=== PATIENT | female | born 1970 | race Caucasian/White ===

== ENCOUNTER 2022-02-23 13:39 | Emergency (ER) | payer BC | END 2022-02-23 15:32 | disposition left against medical advice (07) | LOC: MW.ED 13:39 | DX: Z53.21 Procedure and treatment not carried out due to patient leaving prior to being seen by health care provider (principal) ==

== ENCOUNTER 2023-05-09 08:02 | Day surgery (SDC) | payer BC ==
[~2023-05-09 08:02] MED LIST: Sodium Chloride 0.9% 10 ML Syringe FLUSH PRN; Sodium Chloride 0.9% 2.5 ML Syringe FLUSH PRN; Sodium Chloride 0.9% 20 ML SDV IV PRN
[2023-05-09] MEDS: Lactated Ringers 1,000 ML IV SCH (08:35)
[2023-05-09] MEDS ORDERED: Propofol 200 MG/20 ML SDV ONE (08:39)
[2023-05-09] MEDS ORDERED: dexmedeTOMIDine HCl 200 MCG/2 ML SDV ONE (08:43)
[2023-05-09] MEDS ORDERED: Water For Injection, Sterile 20 ML ONE (08:43)
== END 2023-05-09 10:10 | disposition home or self-care (01) ==
LOC: MW.SDS 08:02
PROVIDERS: ATTEND Surgery
DX: K44.9 Diaphragmatic hernia without obstruction or gangrene (principal); K76.9 Liver disease, unspecified; R10.13 Epigastric pain; R19.4 Change in bowel habit; R13.10 Dysphagia, unspecified; F17.200 Nicotine dependence, unspecified, uncomplicated; Z79.899 Other long term (current) drug therapy; Z88.2 Allergy status to sulfonamides
CPT/HCPCS: 43239; J2704; J7120; 00731; J3490